=== PATIENT | male | born 1980 | race Caucasian/White ===

== ENCOUNTER 2017-05-15 09:06 | Day surgery (SDC) | payer BC ==
[~2017-05-15 09:06] MED LIST: Lactated Ringers 1,000 ML IV SCH
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
[2017-05-15] MEDS ORDERED: Propofol 200 MG/20 ML SDV ONE ×2 (11:29→11:44)
[2017-05-15] MEDS ORDERED: Lidocaine 2% 5 ML SDV ONE (11:44)
[2017-05-15] MEDS ORDERED: fentaNYL 100 MCG/2 ML SDV ONE (11:44)
[2017-05-15] MEDS ORDERED: Midazolam 1 MG/ML 2 ML SDV ONE (11:44)
--- NOTE | 2017-05-15 12:17 | PCM.OPNOTE ---
- General Post-Op/Procedure Note Date of Surgery/Procedure: 05/15/17 Operative Procedure(s): colonoscopy Findings: see dict [id number] Pre Op Diagnosis: change in bowel habits Post-Op Diagnosis: hemorrhoid Anesthesia Technique: Moderate Sedation Primary Surgeon: Sukhjinder Alfaro Complications: None Condition: Good
--- NOTE | 2017-05-15 13:19 | PCM.POSTAN ---
POST ANESTHESIA ASSESSMENT - MENTAL STATUS Mental Status: Alert, Oriented - RESPIRATORY Respiratory Status: Respiratory Rate WNL, Airway Patent, O2 Saturation Stable - CARDIOVASCULAR CV Status: Pulse Rate WNL, Blood Pressure Stable - GASTROINTESTINAL GI Status: No Symptoms - POST OP HYDRATION Hydration Status: Adequate & Stable - OBSERVATIONS Free Text/Narrative:: no anesthesia problems
--- NOTE | 2017-05-15 15:24 | OR ---
SURGEON: Sukhjinder Alfaro MD DATE OF PROCEDURE: 05/15/2017 PREOPERATIVE DIAGNOSIS: Increased constipation, change in bowel habits. POSTOPERATIVE DIAGNOSIS: Hemorrhoids. PROCEDURE PERFORMED: Colonoscopy. FINDINGS: 1. The patient is easily sedated with BREAD MOLDER and Diprivan. The patient is soundly snoring. 2. Bowel prep is left to be desirable. There was moderate amount of liquid stool, no semi-formed stool, but there were quite a lot of bubbles and requiring constant irrigation. Colon was rather straightforward. Cecum indicated by ileocecal fold, one-to-one indentation, light emittance, appendiceal orifice observed, and mucosa examined. Upon scope pulling out, the patient does not have diverticulosis, polyp, mass, growth, inflammation, stricture, ulceration, bleeding, AV malformation, none of those. The patient has very mild internal hemorrhoids, no external hemorrhoids. The patient would benefit from a repeat colonoscopy 10 years from today or if clinically indicated otherwise. PROCEDURE IN DETAIL: The patient was taken to the endoscopy room. A time-out was called, patient identified, and procedure identified. Diprivan was then administrated. Patient went from awake to sleep, hearing doctor talking or door closing is normal. Perineum inspection and digital examination were then performed. A well- lubricated colonoscope was gently inserted through the rectum, advanced past the rectosigmoid junction, the descending colon, splenic flexure, transverse colon, hepatic flexure, ascending colon, arrived to the cecum. Cecum was identified as dictated in the finding. Then the scope was carefully withdrawn while attention was paid to the mucosal surface for any abnormality. Air will be sucked out during the scope withdrawal. At the rectum, retroflexed to examine any rectal diseases, fistula or hemorrhoids. Patient tolerated procedure well. There were no intraoperative complications, and Dr. Alfaro was present throughout the whole procedure. SERAFIN / KINDRA /[id number]
== END 2017-05-15 13:05 | disposition home or self-care (01) ==
LOC: MW.SDS 09:06
PROVIDERS: ATTEND Surgery
DX: K64.8 Other hemorrhoids (principal)
CPT/HCPCS: 45378; J2250; J3010; J7120; J2704